=== PATIENT | female | born 1960 | race Caucasian/White ===

== ENCOUNTER → 2022-06-07 | Emergency (ER) | payer OTHER ==
[~2022-06-07] VITALS: Ht 165.1 cm; Wt 54.4 kg
[~2022-06-07] MED LIST: DYMISTA NASAL S23 GM NS; MEDROLPACK PO; SYNTHROID100 MCG PO
== END | disposition home or self-care (01) ==
LOC: ER 09:54
DX: M54.50 Low back pain, unspecified (principal); Z88.0 Allergy status to penicillin; Z88.2 Allergy status to sulfonamides; Z88.6 Allergy status to analgesic agent